=== PATIENT | male | born 1940 | race Caucasian/White ===

== ENCOUNTER → 2018-01-27 | Outpatient (REF) | payer MEDICARE, OTHER ==
[2018-01-27 15:31] LABS: ALBUMIN/GLOBULIN RATIO 1.21 (1.00-1.93); ALKALINE PHOSPHATASE 112 U/L (45-117); ALT/SGPT 24 U/L (12-78); ANION GAP 8 MEQ/L (8-16); AST/SGOT 17 U/L (7-37); BILIRUBIN,TOTAL 0.6 MG/DL (0.2-1.0); BLOOD UREA NITROGEN 11 MG/DL (7-18); CALCIUM LEVEL 9.4 MG/DL (8.8-10.2); CARBON DIOXIDE LEVEL 28 MEQ/L (21-32); CHLORIDE LEVEL 107 MEQ/L (98-107); CHOLESTEROL LEVEL 165 MG/DL (<200); CHOLESTEROL RISK RATIO 6.875 (<5); CREATININE FOR GFR 1.18 MG/DL (0.70-1.30); GLOMERULAR FILTRATION RATE > 60.0 (>42); GLUCOSE, FASTING 95 MG/DL (70-100); HDL CHOLESTEROL 24 MG/DL (>40); LDL CHOLESTEROL 81 MG/DL (<100); NON-HDL-C 141 MG/DL; POTASSIUM SERUM 4.2 MEQ/L (3.5-5.1); SODIUM LEVEL 143 MEQ/L (136-145); TOTAL PROTEIN 7.3 GM/DL (6.4-8.2); TRIGLYCERIDES LEVEL 301 MG/DL (<150)
[2018-01-27 15:36] LABS: TOTAL 25(OH) VITAMIN D 46.1 NG/ML (30.0-100.0)
== END ==
LOC: M SFHCPLAZ 09:39
DX: Z00.00 Encounter for general adult medical examination without abnormal findings (principal); E55.9 Vitamin D deficiency, unspecified; E78.5 Hyperlipidemia, unspecified; Z79.899 Other long term (current) drug therapy
CPT/HCPCS: 80053

== ENCOUNTER → 2018-06-13 | Outpatient (REF) | payer MEDICARE, OTHER ==
[~2018-06-13] MED LIST: /AUGM875TA; ACET65TA; ACTIVITY; ALTA10CA; COSOPT; FLAG500T; HYDR25TA6; LUMIGAN; METOPROLOL; PERC5TAB8; [UNRECOGNIZED DRUG - REMARK]
== END ==
LOC: M LABDRWAD 19:40
PROVIDERS: ATTEND Urology
DX: Z85.46 Personal history of malignant neoplasm of prostate (principal)

== ENCOUNTER → 2019-01-23 | Outpatient (REF) | payer MEDICARE, OTHER ==
[2019-01-23 13:45] LABS: ALBUMIN 3.9 GM/DL (3.2-5.2); ALT/SGPT 28 U/L (12-78); BILIRUBIN,TOTAL 0.6 MG/DL (0.2-1.0); BLOOD UREA NITROGEN 10 MG/DL (7-18); CALCIUM LEVEL 9.1 MG/DL (8.8-10.2); CARBON DIOXIDE LEVEL 27 MEQ/L (21-32); CHLORIDE LEVEL 106 MEQ/L (98-107); CHOLESTEROL LEVEL 161 MG/DL (<200); CREATININE FOR GFR 1.08 MG/DL (0.70-1.30); GLOMERULAR FILTRATION RATE > 60.0 (>42); GLUCOSE, FASTING 100 MG/DL (70-100); HDL CHOLESTEROL 28 MG/DL (>40); LDL CHOLESTEROL 86 MG/DL (<100); NON-HDL-C 133 MG/DL; POTASSIUM SERUM 3.8 MEQ/L (3.5-5.1); SODIUM LEVEL 139 MEQ/L (136-145); TOTAL PROTEIN 7.5 GM/DL (6.4-8.2); TRIGLYCERIDES LEVEL 236 MG/DL (<150)
[2019-01-23 13:47] LABS: TOTAL 25(OH) VITAMIN D 45.8 NG/ML (30.0-100.0)
== END ==
LOC: M SFHCPLAZ 11:18
PROVIDERS: ATTEND Nurse Practitioner Adult Health
DX: E78.5 Hyperlipidemia, unspecified (principal); E55.9 Vitamin D deficiency, unspecified
CPT/HCPCS: 36415; 80053; 80061; 82306; 90682; G0008

== ENCOUNTER 2020-10-02 22:06 | Observation (INO) | payer MEDICARE, OTHER ==
[~2020-10-02] VITALS: Ht 172.7 cm; Wt 78.3 kg
[2020-10-02 22:55] LABS: BASO # 0.1 10^3/uL (0.0-0.2); BASO % 1.1 % (0.0-1.0); EOS # 0.4 10^3/uL (0.0-0.5); EOS % 5.8 % (0.0-3.0); HEMATOCRIT 38.8 % (42.0-52.0); LYMPH # 1.8 10^3/uL (1.5-5.0); LYMPH % 25.6 % (24.0-44.0); MEAN CORPUSCULAR HGB CONC 33.5 g/dl (32.0-36.5); MEAN CORPUSCULAR VOLUME 86.4 fl (80.0-96.0); MONO # 0.8 10^3/uL (0.0-0.8); MONO % 11.2 % (2.0-8.0); NEUTROPHILS # 3.9 10^3/uL (1.5-8.5); NEUTROPHILS % 55.7 % (36.0-66.0); PLATELET COUNT, AUTOMATED 251 10^3/uL (150-450); RED BLOOD COUNT 4.49 10^6/uL (4.30-6.10)
[2020-10-02 23:28] LABS: OSMOLALITY SERUM 295 MOSM/KG (280-301)
[2020-10-02 23:35] LABS: ALBUMIN 3.8 GM/DL (3.2-5.2); ALT/SGPT 28 U/L (12-78); BILIRUBIN,DIRECT 0.1 MG/DL (0.0-0.2); BILIRUBIN,TOTAL 0.5 MG/DL (0.2-1.0); BLOOD UREA NITROGEN 13 MG/DL (7-18); CALCIUM LEVEL 9.2 MG/DL (8.8-10.2); CARBON DIOXIDE LEVEL 26 MEQ/L (21-32); CHLORIDE LEVEL 109 MEQ/L (98-107); CK-MB VALUE MASS 3.7 NG/ML (<3.6); CPK CREATINE PHOSPHOKINASE 200 U/L (39-308); CREATININE FOR GFR 1.15 MG/DL (0.70-1.30); ETHYL ALCOHOL (ETHANOL) < 0.003 % (0.000-0.010); GLOMERULAR FILTRATION RATE > 60.0 (>35); GLUCOSE, FASTING 93 MG/DL (70-100); MB/CK RELATIVE INDEX 1.85 (< OR =4); POTASSIUM SERUM 3.4 MEQ/L (3.5-5.1); SODIUM LEVEL 144 MEQ/L (136-145); TOTAL PROTEIN 7.6 GM/DL (6.4-8.2); TROPONIN I < 0.02 NG/ML (< 0.10)
--- NOTE | 2020-10-02 23:47 | REPVR ---
PROCEDURE INFORMATION: Exam: CT Head Without Contrast Exam date and time: 10/02/2020 10:54 PM Age: 80 years old Clinical indication: Altered mental status/memory loss; Confusion or disorientation TECHNIQUE: Imaging protocol: Computed tomography of the head without contrast. Radiation optimization: All CT scans at this facility use at least one of these dose optimization techniques: automated exposure control; mA and/or kV adjustment per patient size (includes targeted exams where dose is matched to clinical indication); or iterative reconstruction. COMPARISON: No relevant prior studies available. FINDINGS: Brain: There is mild cerebral volume loss. 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 No signs of a recent infarction or hemorrhage. No midline shift or mass effect. Cerebral ventricles: No ventriculomegaly. Paranasal sinuses: Visualized sinuses are clear. Mastoid air cells: Mastoid air cells are clear. Bones/joints: Unremarkable. No acute fracture. Soft tissues: Unremarkable. IMPRESSION: Mild cerebral volume loss and chronic white matter changes. No acute intracranial abnormality. Electronically signed by: Austyn Coker On 10/02/2020 23:46:50 PM
--- NOTE | 2020-10-03 00:16 | REPVR ---
PROCEDURE INFORMATION: Exam: XR Chest Exam date and time: 10/02/2020 11:55 PM Age: 80 years old Clinical indication: Other: Altered mental status TECHNIQUE: Imaging protocol: XR of the chest. Views: 1 view. COMPARISON: No relevant prior studies available. FINDINGS: Lungs: Clear. No consolidation. Pleural spaces: No pleural effusion. No pneumothorax. Heart/Mediastinum: Unremarkable. No cardiomegaly. Bones/joints: Unremarkable. IMPRESSION: No acute findings. Electronically signed by: Austyn Coker On 10/03/2020 00:15:37 AM
[2020-10-03 00:47] LABS: AMPHETAMINES LEVEL URINE NEGATIVE (NEGATIVE); BARBITURATES URINE NEGATIVE (NEGATIVE); BENZODIAZEPINES URINE NEGATIVE (NEGATIVE); CANNABINOIDS URINE NEGATIVE (NEGATIVE); COCAINE METABOLITE URINE NEGATIVE (NEGATIVE); METHADONE URINE NEGATIVE (NEGATIVE); OPIATES URINE NEGATIVE (NEGATIVE); PHENCYCLIDINE URINE NEGATIVE (NEGATIVE)
--- NOTE | 2020-10-03 03:28 | HPEPDOC ---
[facility] Medical History & Physical Date of Admission Oct 03, 2020 Date of Service: Oct 03, 2020 Attending Physician: BRENT GREGORIO MD MPH History and Physical CHIEF COMPLAINT: Confusion HISTORY OF PRESENT ILLNESS: Mr. Rivas was brought to the ED by EMS after he called his son this afternoon and was notably confused. Patient and son report that patient was napping in his recliner after lunch this morning and woke around 1730 and was disoriented. He thought it was morning again and so he ate breakfast and then went to call his son to ask when he was going to be picked up for a trip they had planned on taking (the next day). The son recognized the patient was confused and called EMS who brought the patient to the ED. Patient states he feels like his legs were a little shaky after getting up from his lounge chair but at this time he feels completely back to his baseline. Patient and son report that patient has not had any increased stressors recently, has not experienced any headaches, ab dominal discomfort, chest pains, fevers, chills, nausea, vomiting, stool changes, weight changes, or any other symptoms, about 7-10 days ago patient struck the top of his head on a cabinet door when standing up but did not lose consciousness or experience a lingering headache. 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 ROS: A 10 point ROS was obtained and was unremarkable except as noted above. PAST MEDICAL PROBLEMS: High blood pressure PAST SURGICAL HISTORY: Per chart review, multiple orthopedic surgeries MEDICATIONS: See record SOCIAL HISTORY: LIVES: At home, mostly alone, though does have children who visit and live nearby WORK: Retired TOBACCO: No recent ALCOHOL: Rare OTHER PERTINENT: Ambulates by self, drives occasionally locally PHYSICAL EXAMINATION: VITAL SIGNS: Reviewed, see below GENERAL: Well appearing, jovial older male, NAD HEENT: PERRLA, EOMI, dentition intact NECK: supple HEART: RRR no M/R/G, DPP 2+ bilaterally LUNGS: CTAB ABDOMEN: soft, non distended, non tender to palpation, active bowel sounds SKIN: No appreciable rashes or lesions MSK: no deformities, moving all limbs fully NEURO: Alert and oriented to person and place, requires additional prompting for name of hospital and city. Unable to recall year, believes it might be 20 something, cannot recall what month or what holiday is coming up and believes that it is spring. Can identify objects and is able to recall 2/3 objects imme diately, 3/3 with categories, and on delayed recall can remember 0/3 objects and 1/3 with categories. Extremity strength 5/5 throughout. Did not assess gait PSYCH: euthymic LABS: Reviewed RADIOLOGY: CXR: IMPRESSION: No acute findings. CT Head: IMPRESSION: Mild cerebral volume loss and chronic white matter changes. No acute intracranial abnormality. MICROBIOLOGY: BCx pending ASSESSMENT: Mr. Rivas is an 80 year old male brought in by EMS for several hours of new confusion without any specific focality but is now at his baseline per patient a nd family. He has been admitted for additional w/u after unremarkable labs and CT head in the ED. PLAN: # Confusion This is not a typical TIA or CVA presentation and while patient and son feel klaudia t it is resolved, patient still has some generalized memory impairment which may be of unclear duration. Imaging is not concerning for acute or recent bleed in light of history of head contusion a week ago however patient may be experiencing symptoms of a concussion. Differential also includes sundowning from a dementia process, decreased cerebral profusion, polypharmacy, and metabolic encephalopathy however laboratory studies are thus far normal. Patient cannot recall his medications at this time but does keep all the bottles in one area and will take medications from the bottles and does not use a pill container. Will continue w/u for TIA with MRI head and carotid duplex. Meds: Aspirin 81mg daily Atorvastatin 40mg QHS Consult pharmacy med historian for deep medication review Falls precautions MRI head Carotid duplex Neuro consult in the am Cholesterol study in the morning # Hypertension: Patient is mildly hypertensive on admission and may be on HCTZ. Unclear on if this is true as patient cannot recall medications and doses but will obtain records with medical records director. In general this could cause dehydration and electrolyte disturbances and further worsen any confusion and thus may consider changing medications in the morning. Meds: Await med review for home medications # Hypokalemia: Patient is likely on HCTZ and this could be causing his hypokalemia. Will replete and hold HCTZ pending med historian review and consider starting alternative BP medications. Meds: KCl 40MEQ Repeat labs in the morning DISPO: Med surg floor, obs DIET: heart healthy DVT PROPHY: lovenox DISCHARGE: <2 MN expected pending study results CONSULTS: PT, SW, possible Neuro in the AM Vital Signs Vital Signs Date Time Temp Pulse Resp B/P (MAP) Pulse Ox O2 Delivery O2 Flow Rate FiO2 10/03/20 02:03 79 20 99 Room Air 10/03/20 02:00 155/89 (111) 10/03/20 00:03 97.1 Laboratory Data Labs 24H Laboratory Tests 2 10/02/20 22:37: Immature Granulocyte % (Auto) 0.6, Neutrophils (%) (Auto) 55.7, Lymphocytes (%) (Auto) 25.6, Monocytes (%) (Auto) 11.2H, Eosinophils (%) (Auto) 5.8H, Basophils (%) (Auto) 1.1H, Neutrophils # (Auto) 3.9, Lymphocytes # (Auto) 1.8, Monocytes # (Auto) 0.8, Eosinophils # (Auto) 0.4, Basophils # (Auto) 0.1, Nucleated Red Blood Cells % (auto) 0.0, Anion Gap 9, Glomerular Filtration Rate > 60.0, Osmolality 295, Lactic Acid Level 1.3, Calcium Level 9.2, Total Bilirubin 0.5, Direct Bilirubin 0.1, Aspartate Amino Transf (AST/SGOT) 19, Alanine Aminotrans ferase (ALT/SGPT) 28, Alkaline Phosphatase 152H, Ammonia 19, Total Creatine Kinase 200, Creatine Kinase MB 3.7H, Creatine Kinase MB Relative Index 1.85, Troponin I < 0.02, Total Protein 7.6, Albumin 3.8, Albumin/Globulin Ratio 1.0, Thyroid Stimulating Hormone (TSH) 3.170, Ethyl Alcohol Level < 0.003 10/02/20 22:45: POC Glucose (Misc Panel) 100, POC Sodium (Misc Panel) 144, POC Potassium (Misc Panel) 3.1L, POC Chloride (Misc Panel) 104, POC Total CO2 (Misc Panel) 24.0, POC Blood Urea Nitrogen (Misc Panel 12, POC Ionized Calcium (Misc Panel) 4.7, POC Creatinine (Misc Panel) 1.1, POC Hematocrit (Misc Panel) 38.0 10/03/20 00:04: Urine Color STRAW, Urine Appearance CLEAR, Urine pH 6.0, Urine Specific [place] 1.006, Urine Protein NEGATIVE, Urine Glucose (UA) NEGATIVE, Urine Ketones NEGATIVE, Urine Blood NEGATIVE, Urine Nitrite NEGATIVE, Urine Bilirubin N EGATIVE, Urine Urobilinogen 0.2, Urine Leukocyte Esterase NEGATIVE, Urine WBC (Auto) 0, Urine RBC (Auto) 0, Urine Hyaline Casts (Auto) 0, Urine Bacteria (Auto) 1+H, Urine Squamous Epithelial Cells 0, Urine Sperm (Auto) , Urine Opiates Screen NEGATIVE, Urine Methadone Screen NEGATIVE, Urine Barbiturates Screen NEGATIVE, Urine Phencyclidine Screen NEGATIVE, Urine Amphetamines Screen NEGATIVE, Urine Benzodiazepines Screen NEGATIVE, Urine Cocaine Metabolite Screen NEGATIVE, Urine Cannabinoids Screen NEGATIVE CBC/BMP Laboratory Tests 10/02/20 22:37 Microbiology Microbiology 10/02/20 Blood Culture, Received Pending 10/02/20 Blood Culture, Received Pending Home Medications Miscellaneous Medications Acetaminophen (Tylenol) 650 Mg Tab Amoxicillin/Clavulanate Potas (Augmentin) 875 Mg Tab Hydrochlorothiazide (Hydrochlorothiazide) 25 Mg Tab Metronidazole (Flagyl) 500 Mg Tab Oxycodone/Acetaminophen (Percocet) 1 Tab Tab Oxycodone/Acetaminophen (Percocet) 1 Tab Tab Ramipril (Altace) 10 Mg Cap [Activity] [Cosopt] [Lumigan] [Metoprolol] [Maryuri Removal] Allergies Coded Allergies: No Known Allergies (Unverified , 10/03/20) A-FIB/CHADSVASC A-FIB History Current/History of A-Fib/PAF?: No Current PO Anticoag Therapy: No Age/Risk Factor Scoring CHADSVASC: CHADSVASC Response (Comments) Value Age Risk Factor Age >/= 75 years old 2 Gender Risk Factor Male 0 Hx of CHF No 0 Hx of HTN Yes 1 Hx of Stroke/TIA/or VTE No 0 Hx of Diabetes No 0 Hx of Vascular Disease No 0 Total 3 Treatment Treatment ordered: Other Other anticoagulant ordered: BRENT MCCONNELL MD MPH Oct 03, 2020 03:28
[2020-10-03 04:38] LABS: RSV AMPLIFICATION NEGATIVE (NEGATIVE)
[2020-10-03 04:56] LABS: C REACTIVE PROTEIN QUANTITATIV < 0.30 MG/DL (0.00-0.30); CHOLESTEROL LEVEL 157 MG/DL (<200); CHOLESTEROL RISK RATIO 5.814 (<5); HDL CHOLESTEROL 27 MG/DL (>40); LDL CHOLESTEROL 97 MG/DL (<100); NON-HDL-C 130 MG/DL; TRIGLYCERIDES LEVEL 163 MG/DL (<150)
[2020-10-03] MEDS: ATORVASTATIN 20 MG TAB PO SCH ×2 (05:00→20:32)
[2020-10-03] MEDS ORDERED: METO1TAB32 PO (05:02)
[2020-10-03] MEDS ORDERED: HYDR12CA PO (05:02)
[2020-10-03] MEDS ORDERED: COSO1SOL3 OU (05:02)
[2020-10-03] MEDS ORDERED: ASPI-161 PO (05:02)
[2020-10-03] MEDS ORDERED: RAMI1CAP26 PO (05:02)
[2020-10-03] MEDS ORDERED: AMLO2.5T3 PO (05:02)
[2020-10-03] MEDS ORDERED: BIMA01SOL OU (05:02)
[2020-10-03 05:15] VITALS: BP 150/80
--- NOTE | 2020-10-03 05:47 | ECGEPIP ---
[facility] - ED Test Date: 2020-10-02 Pat Name: KERRI CONNELL Department: Room: - Gender: Male Sort Line: GAVI : 1940 Requested By: ALLAN Redman Order Number: [id number] Reading MD: Juan Pop Measurements Intervals [place] Rate: 56 P: 49 NH: 154 QRS: 15 QRSD: 88 T: 11 QT: 426 QTc: 411 Interpretive Statements Sinus bradycardia NONSPECIFIC T WAVE ABNORMALITY(S) BASELINE ARTIFACT AFFECTS INTERPRETATION NO PRIORS FOR COMPARISON Electronically Signed on 10-03-2020 5:47:06 EDT by Juan Pop
[2020-10-03] MEDS ORDERED: LR 250 ML IV ONE (06:50)
--- NOTE | 2020-10-03 08:20 | REPVR ---
PROCEDURE INFORMATION: Exam: US Duplex Bilateral Extracranial Arteries Exam date and time: 10/03/2020 6:52 AM Age: 80 years old Clinical indication: Other: Confusion TECHNIQUE: Imaging protocol: Real-time Duplex ultrasound scan of the bilateral carotid and vertebral arteries combining vallecillo scale, color Doppler and spectral waveform analysis. Bilateral exam. COMPARISON: CT Head without contrast 10/02/2020 10:51 PM FINDINGS: Right common carotid artery: Unremarkable. No occlusion or stenosis. Waveforms are normal. Right internal carotid artery: Unremarkable. No occlusion or stenosis. Waveforms are normal. Right ICA/CCA ratio: Within normal limits. Right external carotid artery: No stenosis in the origin. Right vertebral artery: Antegrade flow in the right vertebral artery. Left common carotid artery: Unremarkable. No occlusion or stenosis. Waveforms are normal. Left internal carotid artery: Unremarkable. No occlusion or stenosis. Waveforms are normal. Left ICA/CCA ratio: Within normal limits. Left external carotid artery: No stenosis in the origin. Left vertebral artery: The left vertebral artery could not be identified. IMPRESSION: 1. No significant stenosis in the bilateral cervical carotid arteries. 2. Antegrade flow in the right vertebral artery. The left vertebral artery could not be identified. REFERENCES: SRU CRITERIA. The degree of internal carotid artery stenosis is based on criteria defined by the Society of Radiologists in Ultrasound (SRU). Normal is no stenosis. Mild is less than 50% stenosis. Moderate is 50-69% stenosis. Severe is greater than 69% stenosis to near occlusion. Near occlusion is a markedly narrowed lumen. Total occlusion is no detectable patent lumen. Electronically signed by: Breana Sepulveda On 10/03/2020 08:20:12 AM
[2020-10-03] MEDS: ENOXAPARIN 40MG/0.4ML SYRINGE (J1650 PER 10MG) SC SCH (08:33)
[2020-10-03] MEDS: ASPIRIN 81MG ENTERIC TABLET PO SCH (08:33)
[2020-10-03] MEDS ORDERED: POTASSIUM CHL PWD 20 MEQ PACKET PO ONE (09:00)
[2020-10-03 14:00] VITALS: BP 119/72
--- NOTE | 2020-10-03 16:57 | REPVR ---
PROCEDURE INFORMATION: Exam: MR Head Without Contrast Exam date and time: 10/03/2020 2:47 AM Age: 80 years old Clinical indication: Altered mental status/memory loss; Confusion or disorientation TECHNIQUE: Imaging protocol: MR of the head without contrast. COMPARISON: CT Head without contrast 10/02/2020 10:51 PM FINDINGS: Brain: No acute infarct identified on the diffusion-weighted imaging. No parenchymal hemorrhage. The brain demonstrates generalized volume loss. Moderate patchy increased signal intensity in the deep white matter on the T2 weighted imaging most likely represents chronic small vessel ischemic change. Cerebral ventricles: The ventricles are enlarged in keeping with volume loss. Bones/joints: Unremarkable. Paranasal sinuses: Trace ethmoid mucosal thickening. Mastoid air cells: Normal as visualized. No mastoid effusion. Orbital cavity: Unremarkable. Soft tissues: Unremarkable. IMPRESSION: No acute intracranial abnormality. Electronically signed by: Shilpa Zuniga On 10/03/2020 16:56:39 PM
[2020-10-03 22:00] VITALS: BP 150/78
[2020-10-04 06:00] VITALS: BP 103/57
[2020-10-04 06:17] LABS: HEMATOCRIT 39.7 % (42.0-52.0); HEMOGLOBIN 13.4 g/dl (13.5-17.5); MEAN CORPUSCULAR HGB CONC 33.8 g/dl (32.0-36.5); MEAN CORPUSCULAR VOLUME 85.9 fl (80.0-96.0); PLATELET COUNT, AUTOMATED 251 10^3/uL (150-450); RED BLOOD COUNT 4.62 10^6/uL (4.30-6.10); WHITE BLOOD COUNT 7.6 10^3/uL (4.0-10.0)
[2020-10-04 06:39] LABS: BLOOD UREA NITROGEN 13 MG/DL (7-18); CARBON DIOXIDE LEVEL 25 MEQ/L (21-32); CHLORIDE LEVEL 109 MEQ/L (98-107); CREATININE FOR GFR 0.92 MG/DL (0.70-1.30); GLOMERULAR FILTRATION RATE > 60.0 (>35); GLUCOSE, FASTING 99 MG/DL (70-100); POTASSIUM SERUM 3.7 MEQ/L (3.5-5.1); SODIUM LEVEL 140 MEQ/L (136-145)
[2020-10-04] MEDS: ASPIRIN 81MG ENTERIC TABLET PO SCH (08:11)
[2020-10-04] MEDS: ENOXAPARIN 40MG/0.4ML SYRINGE (J1650 PER 10MG) SC SCH (08:11)
--- NOTE | 2020-10-04 11:08 | DSES ---
DISCHARGE SUMMARY DATE OF ADMISSION: 10/02/2020 DATE OF DISCHARGE: 10/04/2020 PRINCIPAL DIAGNOSIS: Altered mental status probably related to minor head trauma earlier in the week with underlying dementia. HISTORY: The patient was admitted with disorientation. For details, see history and physical from admission. HOSPITAL COURSE: He quickly returned to his baseline mental status after admission. His vital signs were stable while he was here. MRI of the brain showed age-related atrophy. Carotid ultrasound was unremarkable. Lab work was unremarkable. DISCHARGE PHYSICAL EXAMINATION: GENERAL APPEARANCE: On the day of discharge, he is dressed and ready to go home. He is able to converse. He tells me the name of his son, who he had asked me to call and gave me his address. I did not see any particular deficits beyond what would be expected for age. NEUROLOGIC: Nonfocal. LUNGS: Clear. HEART: Regular rate and rhythm. ABDOMEN: Soft and nontender. SIGNIFICANT LABORATORY DATA: Electrolytes unremarkable today. Potassium 3.7, creatinine 0.9, white count 7.6, hemoglobin 13, platelets 251,000. Tox screen was negative. Urinalysis was negative. SARS screen was negative. IMAGING DATA: Studies as above. DISCHARGE DISPOSITION: He is discharged home in improved and stable condition. He will follow-up with his primary care provider, La Nena Floyd, in a week. DISCHARGE ACTIVITY: As tolerated. DISCHARGE DIET: Continue a no added salt diet. DISCHARGE MEDICATIONS: Unchanged. 1. Amlodipine 2.5 mg daily. 2. Aspirin 81 mg daily. 3. Hydrochlorothiazide 12.5 daily. 4. Metoprolol succinate 25 mg daily. 5. Ramipril 10 mg. 6. Eye drops. The case was discussed with the son who agrees with discharge. Currently no pending labs.
== END 2020-10-04 11:52 | disposition home or self-care (01) ==
LOC: M ED 22:06 → M ED INP 22:07 → ENRESERV 10-03 03:29 → M MSPAV 10-03 05:08
PROVIDERS: ADMIT General Practice; ATTEND Family Medicine
DX: R41.82 Altered mental status, unspecified (principal); F03.90 Unspecified dementia, unspecified severity, without behavioral disturbance, psychotic disturbance, mood disturbance, and anxiety; I10 Essential (primary) hypertension; E87.6 Hypokalemia; Z79.82 Long term (current) use of aspirin; Z79.899 Other long term (current) drug therapy; R09.89 Other specified symptoms and signs involving the circulatory and respiratory systems
CPT/HCPCS: 36415; 70450; 70551; 71045; 80047; 80048; 80061; 80076; 80307; 81001; 82077; 82140; 82550; 82553; 83605; 83930; 84443; 84484; 85025; 85027; 86140; 87040; 87631; 93005; 93041; 93880; 94760; 96372; 97110; 97161; 99285; G0378; J1650

== ENCOUNTER → 2021-01-05 | Outpatient (CLI) | payer MEDICARE, OTHER ==
[~2021-01-05] MED LIST changes: +AMLO2.5T3 PO; +ASPI-161 PO; +BIMA01SOL OU; +COSO1SOL3 OU; +E-Z-GAS II EFFERVESCENT PACKET (SODIUM BICARB./CITRIC ACID/SIMETHICONE) As Ordered ONE; +E-Z-HD 98% w/w 340GM SUSP BTL As Ordered ONE; +E-Z-PAQUE 96% w/w SUSP 176GM BTL As Ordered ONE; +HYDR12CA PO; +METO1TAB32 PO; +RAMI1CAP26 PO
--- NOTE | 2021-01-05 16:05 | REP ---
INDICATION: R13.10 DYSPHAGIA. COMPARISON: None. TECHNIQUE: This procedure was performed under the direct supervision of Dr. Rodriguez. Images were reviewed with Dr. Rodriguez. Liquid barium and gas producing granules were given in the erect position as well as liquid barium in the prone oblique positions in order to perform a double contrast esophagram examination. A combination of fluoroscopy, spot films and last image hold technology was utilized. 1.1 minutes of fluoro time was utilized for this procedure. FINDINGS: A single view PA chest x-ray is submitted as a [employer] commerce consultant film. The superior mediastinal structures are midline. The heart size is within normal limits. The lungs are clear. During the oral and pharyngeal stages of deglutition there is laryngeal penetration. There is eccentric indentation on the lateral cervical esophagus on the right. This may be due to an internal lesion or external compression. Throughout the esophagus there is diffuse mucosal irregularity with slight narrowing consistent with esophagitis. At the GE junction there is eccentric mass effect which may represent neoplasm. Recommend endoscopy for further evaluation. There is a sliding-type hiatal hernia. There is gastroesophageal reflux demonstrated to the level of the thoracic inlet. IMPRESSION: 1. Laryngeal penetration. 2. There is eccentric indentation on the lateral esophagus on the right. This may be due to an internal lesion or external compression. 3. Throughout the esophagus there is diffuse mucosal irregularity with slight narrowing consistent with esophagitis. 4. At the GE junction there is eccentric mass effect which may represent neoplasm. Recommend endoscopy for further evaluation. 5. There is a sliding-type hiatal hernia. There is gastroesophageal reflux demonstrated to the level of the thoracic inlet. <Electronically signed by Emeka Plata > 01/05/21 1557 <Electronically signed by Kirk Rodriguez > 01/05/21 1601
== END ==
LOC: M RAD 09:04
PROVIDERS: ATTEND Physician Assistant Medical
DX: K22.9 Disease of esophagus, unspecified (principal)

== ENCOUNTER → 2021-01-07 | Outpatient (CLI) | payer MEDICARE, OTHER ==
[~2021-01-07] MED LIST changes: -E-Z-GAS II EFFERVESCENT PACKET (SODIUM BICARB./CITRIC ACID/SIMETHICONE) As Ordered ONE; -E-Z-HD 98% w/w 340GM SUSP BTL As Ordered ONE; -E-Z-PAQUE 96% w/w SUSP 176GM BTL As Ordered ONE
== END ==
LOC: M LABSMTC 09:20
PROVIDERS: ATTEND Anesthesiology
DX: Z01.818 Encounter for other preprocedural examination (principal); Z11.52 Encounter for screening for COVID-19

== ENCOUNTER 2021-01-09 11:06 | Day surgery (SDC) | payer MEDICARE, OTHER ==
[~2021-01-09] VITALS: Ht 172.7 cm; Wt 76.2 kg
[~2021-01-09 11:06] MED LIST changes: +LIDOCAINE 2% 100MG/5ML SDV (FOR ANES.) As Ordered ONE; +NS 1,000 ML IV ONE; +fentaNYL 100 MCG/2 ML INJECTION (J3010) As Ordered ONE; +propofoL 200 MG/20 ML VIAL As Ordered ONE
[2021-01-09] MEDS ORDERED: propofoL 200 MG/20 ML VIAL As Ordered ONE (13:12)
--- NOTE | 2021-01-09 14:01 | ROOR ---
Patient Name: Jung Rivas Procedure Date: 01/09/2021 12:49 PM Date of : 1940 Age: 80 Room: [facility] Gender: Male Note Status: Finalized Procedure: Upper GI endoscopy Indications: Dysphagia Providers: Kermit Johnson MD Referring MD: La Nena Floyd NP Requesting Provider: Medicines: Monitored Anesthesia Care Complications: No immediate complications. Procedure: Pre-Anesthesia Assessment: - Prior to the procedure, a History and Physical was performed, and patient medications and allergies were reviewed. The patient is competent. The risks and benefits of the procedure and the sedation options and risks were discussed with the patient. All questions were answered and informed consent was obtained. Patient identification and proposed procedure were verified by the physician, the nurse and the anesthesiologist in the procedure room. Mental Status Examination: alert and oriented. Airway Examination: normal oropharyngeal airway and neck mobility. Respiratory Examination: clear to auscultation. CV Examination: normal. Prophylactic Antibiotics: The patient does not require prophylactic antibiotics. Prior Anticoagulants: The patient has taken no previous anticoagulant or antiplatelet agents. ASA Grade Assessment: II - A patient with mild systemic disease. After reviewing the risks and benefits, the patient was deemed in satisfactory condition to undergo the procedure. The anesthesia plan was to use monitored anesthesia care (MAC). Immediately prior to administration of medications, the patient was re-assessed for adequacy to receive sedatives. The heart rate, respiratory rate, oxygen saturations, blood pressure, adequacy of pulmonary ventilation, and response to care were monitored throughout the procedure. The physical status of the patient was re-assessed after the procedure. The Endoscope was introduced through the mouth, and advanced to the second part of duodenum. The Colonoscope was introduced through the and advanced to the. The upper GI endoscopy was accomplished without difficulty. The patient tolerated the procedure well. Findings: A 50 mm scar was found in the upper third of the esophagus and in the middle third of the esophagus, 20 cm from the incisors. The scar tissue was healthy in appearance. Adjacent mucosal findings include nodularity. Biopsies were taken with a cold forceps for histology. Verification of patient identification for the specimen was done by the physician and nurse using the patient's name, date and medical record number. Estimated blood loss was minimal. Multiple benign-appearing, intrinsic severe (stenosis; an endoscope cannot pass) stenoses were found 20 to 25 cm from the incisors. The narrowest stenosis measured 8 mm (inner diameter) x 5 cm (in length). The stenoses were traversed after downsizing scope. A TTS dilator was passed through the scope. Dilation with a 10-11-12 mm balloon dilator was performed to 11 mm. The dilation site was examined following endoscope reinsertion and showed moderate improvement in luminal narrowing and no perforation. One 20 mm mucosal papule (nodule) with no bleeding and no stigmata of recent bleeding was found in the gastric fundus. Biopsies were taken with a cold forceps for histology. Verification of patient identification for the specimen was done by the physician and nurse using the patient's name, date and medical record number. Scattered mild inflammation characterized by erythema and granularity was found in the gastric antrum. Biopsies were taken with a cold forceps for Helicobacter pylori testing. The duodenal bulb, second portion of the duodenum and third portion of the duodenum were normal. Impression: - Scar in the upper third of the esophagus and in the middle third of the esophagus. Biopsied. - Benign-appearing esophageal stenoses. Dilated. - One mucosal papule (nodule) found in the stomach. Biopsied. - Gastritis. Biopsied. - Normal duodenal bulb, second portion of the duodenum and third portion of the duodenum. Recommendation: - Patient has a contact number available for emergencies. The signs and symptoms of potential delayed complications were discussed with the patient. Return to normal activities tomorrow. Written discharge instructions were provided to the patient. - Clear liquid diet today, then advance as tolerated to mechanical soft diet, soft diet and high fiber diet. - Continue present medications. - Use Protonix (pantoprazole) 40 mg PO twice daily - to be taken in morning (1/2 hour before breakfast) and at bedtime ( atleast 3 hours after last meal) for 3 months. - Use sucralfate suspension 1 gram PO QID for 4 weeks. - Repeat upper endoscopy in 2 months to evaluate the response to therapy and for retreatment. - Telephone GI clinic for pathology results in 2 weeks. - Return to GI clinic in [facility] (address: [address] [place] [address], [address] [place] [address], [place], [place],[facility]) in 4 -- 6 weeks. Please call GI clinic @ [phone] for apppointment date and time. - Return to primary care physician. Procedure Code(s): --- Professional --- 75219, Esophagogastroduodenoscopy, flexible, transoral; with transendoscopic balloon dilation of esophagus (less than 30 mm diameter) 78841, 59, Esophagogastroduodenoscopy, flexible, transoral; with biopsy, single or multiple Diagnosis Code(s): --- Professional --- K22.8, Other specified diseases of esophagus K22.2, Esophageal obstruction K31.89, Other diseases of stomach and duodenum K29.70, Gastritis, unspecified, without bleeding R13.10, Dysphagia, unspecified CPT copyright 2019 [employer]. All rights reserved. The codes documented in this report are preliminary and upon business relationship manager review may be revised to meet current compliance requirements. Kermit Jonhson MD Kermit Johnson MD 01/09/2021 2:01:12 PM Electronically signed by Kermit Johnson MD Number of Addenda: 0 Note Initiated On: 01/09/2021 12:49 PM Estimated Blood Loss: Estimated blood loss was minimal.
[2021-01-09 14:15] VITALS: BP 114/63
== END 2021-01-09 14:16 | disposition home or self-care (01) ==
LOC: M OPP 11:06
PROVIDERS: ATTEND Internal Medicine Gastroenterology
DX: K22.89 Other specified disease of esophagus (principal); K22.2 Esophageal obstruction; K31.89 Other diseases of stomach and duodenum; K29.70 Gastritis, unspecified, without bleeding; R13.10 Dysphagia, unspecified; Z79.82 Long term (current) use of aspirin; Z79.899 Other long term (current) drug therapy; Z90.79 Acquired absence of other genital organ(s)
CPT/HCPCS: 43239; 43249; 88305; J3010

== ENCOUNTER → 2021-02-06 | Outpatient (REF) | payer MEDICARE, OTHER ==
[~2021-02-06] MED LIST changes: -LIDOCAINE 2% 100MG/5ML SDV (FOR ANES.) As Ordered ONE; -NS 1,000 ML IV ONE; -fentaNYL 100 MCG/2 ML INJECTION (J3010) As Ordered ONE; -propofoL 200 MG/20 ML VIAL As Ordered ONE
[2021-02-06 13:08] LABS: ALBUMIN 3.6 GM/DL (3.2-5.2); ALT/SGPT 18 U/L (12-78); BILIRUBIN,TOTAL 0.8 MG/DL (0.2-1.0); BLOOD UREA NITROGEN 12 MG/DL (7-18); CALCIUM LEVEL 9.3 MG/DL (8.8-10.2); CARBON DIOXIDE LEVEL 29 MEQ/L (21-32); CHLORIDE LEVEL 107 MEQ/L (98-107); CHOLESTEROL LEVEL 177 MG/DL (<200); CHOLESTEROL RISK RATIO 6.103 (<5); CREATININE FOR GFR 1.18 MG/DL (0.70-1.30); GLOMERULAR FILTRATION RATE > 60.0 (>35); GLUCOSE, FASTING 103 MG/DL (70-100); HDL CHOLESTEROL 29 MG/DL (>40); LDL CHOLESTEROL 127 MG/DL (<100); NON-HDL-C 148 MG/DL; POTASSIUM SERUM 3.6 MEQ/L (3.5-5.1); SODIUM LEVEL 144 MEQ/L (136-145); TOTAL 25(OH) VITAMIN D 30.3 NG/ML (30.0-100.0); TOTAL PROTEIN 7.1 GM/DL (6.4-8.2); TRIGLYCERIDES LEVEL 107 MG/DL (<150)
== END ==
LOC: M SFHCPLAZ 09:14 → M SFHCADAM 09:21
PROVIDERS: ATTEND Nurse Practitioner Adult Health
DX: E55.9 Vitamin D deficiency, unspecified (principal); E78.5 Hyperlipidemia, unspecified; I10 Essential (primary) hypertension

== ENCOUNTER → 2021-04-08 | Outpatient (CLI) | payer MEDICARE, OTHER | LOC: M LABSMTC 11:39 | PROVIDERS: ATTEND Anesthesiology | DX: Z20.822 Contact with and (suspected) exposure to COVID-19 (principal) ==

== ENCOUNTER → 2021-06-10 | Outpatient (CLI) | payer MEDICARE, OTHER ==
[~2021-06-10] MED LIST changes: +PANT40TA29 PO; +SUCR1ORA2 PO
== END ==
LOC: M LABSMTC 09:50
PROVIDERS: ATTEND Anesthesiology
DX: Z01.818 Encounter for other preprocedural examination (principal); Z11.52 Encounter for screening for COVID-19

== ENCOUNTER 2021-06-15 08:32 | Day surgery (SDC) | payer MEDICARE, OTHER ==
[~2021-06-15] VITALS: Ht 172.7 cm; Wt 75.7 kg
[~2021-06-15 08:32] MED LIST changes: +LIDOCAINE 2% 100MG/5ML SDV (FOR ANES.) As Ordered ONE; +NS 1,000 ML IV ONE; +fentaNYL 100 MCG/2 ML INJECTION As Ordered ONE; +propofoL 200 MG/20 ML VIAL As Ordered ONE
[2021-06-15] MEDS ORDERED: propofoL 200 MG/20 ML VIAL As Ordered ONE (10:20)
[2021-06-15 10:58] VITALS: BP 113/73
== END 2021-06-15 11:00 | disposition home or self-care (01) ==
LOC: M OPP 08:32
PROVIDERS: ATTEND Internal Medicine Gastroenterology
DX: K22.89 Other specified disease of esophagus (principal); K44.9 Diaphragmatic hernia without obstruction or gangrene; K22.2 Esophageal obstruction; Z79.82 Long term (current) use of aspirin; Z79.899 Other long term (current) drug therapy; Z85.46 Personal history of malignant neoplasm of prostate
CPT/HCPCS: 43239; 43249; 88305; 88312; J3010

== ENCOUNTER 2021-07-17 09:50 | Emergency (ER) | payer MEDICARE, OTHER ==
[~2021-07-17] VITALS: Ht 172.7 cm; Wt 75.0 kg
[~2021-07-17 09:50] MED LIST changes: -LIDOCAINE 2% 100MG/5ML SDV (FOR ANES.) As Ordered ONE; -NS 1,000 ML IV ONE; -fentaNYL 100 MCG/2 ML INJECTION As Ordered ONE; -propofoL 200 MG/20 ML VIAL As Ordered ONE
[2021-07-17] MEDS ORDERED: NS 500 ML IV ONE (10:00)
[2021-07-17 10:26] LABS: BASO % 0.4 % (0.0-1.0); EOS % 0.2 % (0.0-3.0); HEMATOCRIT 39.2 % (42.0-52.0); HEMOGLOBIN 13.3 g/dl (13.5-17.5); LYMPH # 0.8 10^3/uL (1.5-5.0); LYMPH % 8.4 % (24.0-44.0); MEAN CORPUSCULAR HEMOGLOBIN 29.3 pg (27.0-33.0); MEAN CORPUSCULAR HGB CONC 33.9 g/dl (32.0-36.5); MEAN CORPUSCULAR VOLUME 86.3 fl (80.0-96.0); MONO # 0.9 10^3/uL (0.0-0.8); MONO % 9.9 % (2.0-8.0); NEUTROPHILS # 7.7 10^3/uL (1.5-8.5); NEUTROPHILS % 80.6 % (36.0-66.0); PLATELET COUNT, AUTOMATED 200 10^3/uL (150-450); RED BLOOD COUNT 4.54 10^6/uL (4.30-6.10); WHITE BLOOD COUNT 9.5 10^3/uL (4.0-10.0)
[2021-07-17 11:06] LABS: RSV AMPLIFICATION NEGATIVE (NEGATIVE)
[2021-07-17 11:15] LABS: ALBUMIN 3.6 GM/DL (3.2-5.2); BILIRUBIN,DIRECT 0.3 MG/DL (0.0-0.2); BILIRUBIN,TOTAL 1.1 MG/DL (0.2-1.0); CALCIUM LEVEL 8.7 MG/DL (8.8-10.2); CREATININE FOR GFR 1.34 MG/DL (0.70-1.30); GLOMERULAR FILTRATION RATE 54.5 (>35); POTASSIUM SERUM 2.9 MEQ/L (3.5-5.1); TOTAL PROTEIN 7.5 GM/DL (6.4-8.2)
[2021-07-17] MEDS ORDERED: POTASSIUM CHLORIDE 10MEQ SR TABLET PO ONE (11:25)
[2021-07-17] MEDS ORDERED: KCL 10MEQ/100ML SWI (KRUN) 10 MEQ in IV 1 EA IV ONE (12:00)
[2021-07-17] MEDS ORDERED: K-TA10TA2 PO (13:15)
[2021-07-17 13:29] VITALS: BP 148/93
== END 2021-07-17 13:45 | disposition home or self-care (01) ==
LOC: EDBD 09:50 → M ED 09:50
DX: R11.2 Nausea with vomiting, unspecified (principal); R19.7 Diarrhea, unspecified; E87.6 Hypokalemia; I10 Essential (primary) hypertension; E78.5 Hyperlipidemia, unspecified; F17.200 Nicotine dependence, unspecified, uncomplicated; Z79.82 Long term (current) use of aspirin; Z79.899 Other long term (current) drug therapy

== ENCOUNTER → 2021-07-24 | Outpatient (CLI) | payer MEDICARE, OTHER ==
[~2021-07-24] MED LIST changes: +K-TA10TA2 PO
[2021-07-24 12:25] LABS: BLOOD UREA NITROGEN 10 MG/DL (7-18); CALCIUM LEVEL 8.9 MG/DL (8.8-10.2); CARBON DIOXIDE LEVEL 29 MEQ/L (21-32); CHLORIDE LEVEL 109 MEQ/L (98-107); CREATININE FOR GFR 1.08 MG/DL (0.70-1.30); GLOMERULAR FILTRATION RATE > 60.0 (>35); GLUCOSE, FASTING 90 MG/DL (70-100); POTASSIUM SERUM 3.6 MEQ/L (3.5-5.1); SODIUM LEVEL 143 MEQ/L (136-145)
== END ==
LOC: M ADAMS 08:37
PROVIDERS: ATTEND Nurse Practitioner Adult Health
DX: E87.6 Hypokalemia (principal)

== ENCOUNTER 2021-09-17 22:20 | Emergency (ER) | payer MEDICARE, OTHER ==
[~2021-09-17] VITALS: Ht 172.7 cm; Wt 73.6 kg
[2021-09-17 23:21] LABS: BASO # 0.1 10^3/uL (0.0-0.2); BASO % 0.8 % (0.0-1.0); EOS # 0.3 10^3/uL (0.0-0.5); EOS % 3.7 % (0.0-3.0); HEMATOCRIT 36.3 % (42.0-52.0); HEMOGLOBIN 12.1 g/dl (13.5-17.5); LYMPH # 1.6 10^3/uL (1.5-5.0); LYMPH % 17.5 % (24.0-44.0); MEAN CORPUSCULAR HEMOGLOBIN 28.7 pg (27.0-33.0); MEAN CORPUSCULAR HGB CONC 33.3 g/dl (32.0-36.5); MONO # 0.9 10^3/uL (0.0-0.8); MONO % 9.9 % (2.0-8.0); NEUTROPHILS # 6.2 10^3/uL (1.5-8.5); NEUTROPHILS % 67.7 % (36.0-66.0); PLATELET COUNT, AUTOMATED 210 10^3/uL (150-450); RED BLOOD COUNT 4.22 10^6/uL (4.30-6.10); WHITE BLOOD COUNT 9.1 10^3/uL (4.0-10.0)
[2021-09-18] LABS: ALBUMIN 3.2 GM/DL (3.2-5.2); ALT/SGPT 22 U/L (12-78); BILIRUBIN,TOTAL 0.4 MG/DL (0.2-1.0); BLOOD UREA NITROGEN 14 MG/DL (7-18); CALCIUM LEVEL 8.5 MG/DL (8.8-10.2); CARBON DIOXIDE LEVEL 25 MEQ/L (21-32); CHLORIDE LEVEL 112 MEQ/L (98-107); CREATININE FOR GFR 1.19 MG/DL (0.70-1.30); GLOMERULAR FILTRATION RATE > 60.0 (>35); GLUCOSE, FASTING 110 MG/DL (70-100); SODIUM LEVEL 144 MEQ/L (136-145); TOTAL PROTEIN 6.8 GM/DL (6.4-8.2)
[2021-09-18 01:00] VITALS: BP 117/70
== END 2021-09-18 01:15 | disposition home or self-care (01) ==
LOC: M ED 22:20
DX: R53.1 Weakness (principal); R53.83 Other fatigue; R41.82 Altered mental status, unspecified; I10 Essential (primary) hypertension; H40.9 Unspecified glaucoma; Z79.899 Other long term (current) drug therapy

== ENCOUNTER → 2022-02-03 | Outpatient (CLI) | payer MEDICARE, OTHER ==
[2022-02-03 15:10] LABS: ALBUMIN 3.8 GM/DL (3.2-5.2); BILIRUBIN,TOTAL 0.6 MG/DL (0.2-1.0); CALCIUM LEVEL 9.6 MG/DL (8.8-10.2); CHOLESTEROL RISK RATIO 5.272 (<5); CREATININE FOR GFR 1.24 MG/DL (0.70-1.30); GLOMERULAR FILTRATION RATE 59.6 (>35); TOTAL PROTEIN 7.7 GM/DL (6.4-8.2)
[2022-02-03 16:21] LABS: TOTAL 25(OH) VITAMIN D 20.5 NG/ML (30.0-100.0)
== END ==
LOC: M PLALAB 11:21
PROVIDERS: ATTEND Nurse Practitioner Adult Health
DX: E55.9 Vitamin D deficiency, unspecified (principal); E78.00 Pure hypercholesterolemia, unspecified

== ENCOUNTER → 2023-04-15 | Outpatient (CLI) | payer MEDICARE, OTHER ==
[~2023-04-15] MED LIST changes: -COSO1SOL3 OU; +DORZ10DR10 OU; -K-TA10TA2 PO; +POTA-165 PO
== END ==
LOC: M PLALAB 11:37
PROVIDERS: ATTEND Urology
DX: Z85.46 Personal history of malignant neoplasm of prostate (principal)

== ENCOUNTER 2023-07-13 20:22 | Emergency (ER) | payer MEDICARE, OTHER ==
[~2023-07-13] VITALS: Ht 175.3 cm; Wt 90.9 kg
[~2023-07-13 20:22] MED LIST changes: -ASPI-161 PO; +ASPI-615 PO
[2023-07-13 21:48] LABS: BASO # 0.1 10^3/uL (0.0-0.2); EOS # 0.3 10^3/uL (0.0-0.5); EOS % 3.5 % (0.0-3.0); HEMATOCRIT 34.5 % (42.0-52.0); HEMOGLOBIN 11.8 g/dl (13.5-17.5); LYMPH # 1.5 10^3/uL (1.5-5.0); LYMPH % 18.4 % (24.0-44.0); MEAN CORPUSCULAR HEMOGLOBIN 29.4 pg (27.0-33.0); MEAN CORPUSCULAR HGB CONC 34.2 g/dl (32.0-36.5); MONO # 0.8 10^3/uL (0.0-0.8); MONO % 9.6 % (2.0-8.0); NEUTROPHILS # 5.5 10^3/uL (1.5-8.5); NEUTROPHILS % 66.9 % (36.0-66.0); PLATELET COUNT, AUTOMATED 195 10^3/uL (150-450); RED BLOOD COUNT 4.01 10^6/uL (4.30-6.10); WHITE BLOOD COUNT 8.3 10^3/uL (4.0-10.0)
[2023-07-13 22:00] LABS: INR 1.01
[2023-07-13 22:15] LABS: ALBUMIN 3.3 G/DL (3.2-5.2); ALKALINE PHOSPHATASE 114 U/L (46-116); ALT/SGPT 11 U/L (7.0-40); AST/SGOT 13 U/L (<34); BILIRUBIN,TOTAL 0.4 MG/DL (0.3-1.2); BLOOD UREA NITROGEN 17 MG/DL (9-23); CALCIUM LEVEL 8.7 MG/DL (8.3-10.6); CARBON DIOXIDE LEVEL 28 MMOL/L (20-31); CHLORIDE LEVEL 111 MMOL/L (98-107); CREATININE FOR GFR 1.13 MG/DL (0.70-1.30); GLOMERULAR FILTRATION RATE > 60.0 (>35); GLUCOSE, FASTING 100 MG/DL (74-106); MAGNESIUM LEVEL 1.8 MG/DL (1.8-2.4); POTASSIUM SERUM 3.7 MMOL/L (3.5-5.1); SODIUM LEVEL 145 MMOL/L (136-145); TOTAL PROTEIN 6.4 G/DL (5.7-8.2)
[2023-07-13 22:48] VITALS: BP 132/83; TEMP 97.8; O2SAT 98
== END 2023-07-13 23:03 | disposition home or self-care (01) ==
LOC: M ED 20:22
DX: S09.90XA Unspecified injury of head, initial encounter (principal); Y92.019 Unspecified place in single-family (private) house as the place of occurrence of the external cause; Y93.9 Activity, unspecified; Y99.9 Unspecified external cause status; W18.2XXA Fall in (into) shower or empty bathtub, initial encounter; Z79.899 Other long term (current) drug therapy

== ENCOUNTER → 2023-07-19 | Outpatient (CLI) | payer MEDICARE, OTHER | LOC: M PLAIMG 15:26 | PROVIDERS: ATTEND Physician Assistant Medical | DX: M51.34 Other intervertebral disc degeneration, thoracic region (principal); M47.816 Spondylosis without myelopathy or radiculopathy, lumbar region ==

== ENCOUNTER → 2024-02-09 | Outpatient (CLI) | payer MEDICARE, OTHER ==
[~2024-02-09] MED LIST changes: +RAMI10CA64 PO; -RAMI1CAP26 PO
[2024-02-09 13:00] LABS: HEMATOCRIT 40.7 % (42.0-52.0); HEMOGLOBIN 13.3 g/dl (13.5-17.5); MEAN CORPUSCULAR HEMOGLOBIN 28.5 pg (27.0-33.0); MEAN CORPUSCULAR HGB CONC 32.7 g/dl (32.0-36.5); MEAN CORPUSCULAR VOLUME 87.3 fl (80.0-96.0); PLATELET COUNT, AUTOMATED 236 10^3/uL (150-450); RED BLOOD COUNT 4.66 10^6/uL (4.30-6.10); WHITE BLOOD COUNT 8.5 10^3/uL (4.0-10.0)
[2024-02-09 13:03] LABS: ALBUMIN 3.6 G/DL (3.2-5.2); BILIRUBIN,TOTAL 0.7 MG/DL (0.3-1.2); CALCIUM LEVEL 9.5 MG/DL (8.3-10.6); CHOLESTEROL RISK RATIO 5.72 (<5); CREATININE FOR GFR 1.26 MG/DL (0.70-1.30); GLOMERULAR FILTRATION RATE 58.2 (>35); HDL CHOLESTEROL 33.2 MG/DL (>40); LDL CHOLESTEROL 128.2 MG/DL (<100); NON-HDL-C 156.8 MG/DL; TOTAL PROTEIN 7.4 G/DL (5.7-8.2)
[2024-02-09 13:05] LABS: FERRITIN 78.9 NG/ML (10.5-307.3)
== END ==
LOC: M PLAIMG 09:31
PROVIDERS: ATTEND Nurse Practitioner Adult Health
DX: M25.561 Pain in right knee (principal); I10 Essential (primary) hypertension; E78.5 Hyperlipidemia, unspecified; E55.9 Vitamin D deficiency, unspecified

== ENCOUNTER 2024-10-25 22:54 | Inpatient (IN) | payer MEDICARE, OTHER ==
[~2024-10-25] VITALS: Ht 167.6 cm; Wt 67.3 kg
[~2024-10-25 22:54] MED LIST changes: +ACET-1515 PO; +ASPI81TA26 PO; +HYDR12.510 PO; -HYDR12CA PO; +SERO50TA PO; -SUCR1ORA2 PO; +SUCR1ORA20 PO; +TAMS-18 PO
[2024-10-26 00:59] LABS: BASO # 0.1 10^3/uL (0.0-0.2); BASO % 0.6 % (0.0-1.0); EOS # 0.2 10^3/uL (0.0-0.5); EOS % 1.6 % (0.0-3.0); LYMPH # 1.3 10^3/uL (1.5-5.0); LYMPH % 12.4 % (24.0-44.0); MONO # 0.9 10^3/uL (0.0-0.8); MONO % 8.3 % (2.0-8.0); NEUTROPHILS # 7.9 10^3/uL (1.5-8.5); NEUTROPHILS % 76.7 % (36.0-66.0); PLATELET COUNT, AUTOMATED 270 10^3/uL (150-450)
[2024-10-26 01:22] LABS: CALCIUM LEVEL 9.1 MG/DL (8.3-10.6); CARBON DIOXIDE LEVEL 23 MMOL/L (20-31); CHLORIDE LEVEL 100 MMOL/L (98-107); CREATININE FOR GFR 1.68 MG/DL (0.70-1.30); GLOMERULAR FILTRATION RATE 39.8 (>35); MAGNESIUM LEVEL 2.2 MG/DL (1.8-2.4); POTASSIUM SERUM 3.7 MMOL/L (3.5-5.1); SODIUM LEVEL 138 MMOL/L (136-145)
[2024-10-26] MEDS: NS (Normal Saline) 0.9% 1,000 ML IV ONE (02:03)
[2024-10-26 03:28] LABS: ALT/SGPT 26 U/L (7.0-40); AST/SGOT 21 U/L (<34); C REACTIVE PROTEIN QUANTITATIV < 0.50 MG/DL (<1.0)
[2024-10-26] MEDS ORDERED: MOM 30 ML SUSPENSION UDC PO PRN (04:00)
[2024-10-26] MEDS: RAMELTEON 8 MG TAB PO SCH (04:26)
[2024-10-26] MEDS: LR 1,000 ML IV SCH (04:27)
[2024-10-26 06:53] LABS: PLATELET COUNT, AUTOMATED 250 10^3/uL (150-450)
[2024-10-26 07:13] LABS: CALCIUM LEVEL 8.7 MG/DL (8.3-10.6); CARBON DIOXIDE LEVEL 25.0 MMOL/L (20-31); CHLORIDE LEVEL 101.0 MMOL/L (98-107); CREATININE FOR GFR 1.49 MG/DL (0.70-1.30); GLOMERULAR FILTRATION RATE 46.0 (>35); POTASSIUM SERUM 3.8 MMOL/L (3.5-5.1); SODIUM LEVEL 138.0 MMOL/L (136-145)
[2024-10-26] MEDS: NS (Normal Saline) 0.9% 1,000 ML IV SCH (08:05)
[2024-10-26] MEDS: PANTOPRAZOLE 40MG VIAL IV SCH (08:05)
[2024-10-26] MEDS: DOCUSATE SODIUM 100 MG CAPSULE PO SCH (08:05)
[2024-10-26] MEDS: HEPARIN SOD 5000 UNITS/ML 1 ML VIAL/SYRINGE SC SCH (08:05)
[2024-10-26] MEDS: ACETAMINOPHEN 325 MG TAB PO PRN (08:05)
[2024-10-26] MEDS: NYSTATIN 100,000 UNITS/GM TOPICAL PWD 15 GM TOP SCH (08:06)
[2024-10-26] MEDS ORDERED: TAMSULOSIN 0.4 MG CAP PO SCH (09:00)
[2024-10-26] MEDS ORDERED: TAMS1CAP17 PO (11:15)
[2024-10-26] MEDS ORDERED: QUET50TA4 PO (11:15)
[2024-10-26] MEDS ORDERED: HOME MED LIST COMPLETE! XX SCH (12:05)
[2024-10-26] MEDS: QUEtiapine FUMARATE 50MG TAB PO SCH (13:28)
[2024-10-26] MEDS: TAMSULOSIN 0.4 MG CAP PO SCH (13:29)
[2024-10-26] MEDS: ASPIRIN 81 MG ENTERIC TABLET PO SCH (13:29)
[2024-10-26 14:00] VITALS: BP 113/66; TEMP 97.3
[2024-10-26] MEDS: DORZOLAMIDE/TIMOLOL 10 ML OPHTHALMIC SOLN OU SCH (20:14)
[2024-10-26] MEDS: LATANOPROST 0.005% OPHTH SOLN 2.5 ML OU SCH (20:14)
[2024-10-26 21:08] VITALS: BP 124/94; TEMP 97.5; O2SAT 97
[2024-10-27] VITALS (7 sets, daily range): BP systolic 112–162; BP diastolic 60–107; TEMP 97–98; O2SAT 95–97
[2024-10-27 10:17] LABS: PLATELET COUNT, AUTOMATED 210 10^3/uL (150-450)
[2024-10-27 10:45] LABS: CALCIUM LEVEL 8.5 MG/DL (8.3-10.6); CARBON DIOXIDE LEVEL 23.0 MMOL/L (20-31); CHLORIDE LEVEL 107.0 MMOL/L (98-107); CREATININE FOR GFR 1.26 MG/DL (0.70-1.30); GLOMERULAR FILTRATION RATE 56.2 (>35); MAGNESIUM LEVEL 1.9 MG/DL (1.8-2.4); POTASSIUM SERUM 4.3 MMOL/L (3.5-5.1); SODIUM LEVEL 143.0 MMOL/L (136-145)
[2024-10-27] MEDS: METOPROLOL SUCC. 25 MG *XL* TAB PO ONE (11:03)
[2024-10-27] MEDS ORDERED: AMLO1TAB24 PO (11:15)
[2024-10-27] MEDS ORDERED: METO1TAB32 PO (11:17)
[2024-10-27] MEDS: amLODIPine 5 MG TAB PO ONE (11:42)
[2024-10-27] MEDS ORDERED: AMLO2.5T3 PO (12:45)
== END 2024-10-27 15:55 | disposition home health service (06) | DRG 684 ==
LOC: M ED 22:54 → M ED INP 10-26 04:00 → M MS5PR 10-26 13:37
PROVIDERS: ADMIT Student in an Organized Health Care Education/Training Program; ATTEND Internal Medicine
DX: N17.9 Acute kidney failure, unspecified (principal); F02.80 Dementia in other diseases classified elsewhere, unspecified severity, without behavioral disturbance, psychotic disturbance, mood disturbance, and anxiety; G31.83 Neurocognitive disorder with Lewy bodies; G20.A1 Parkinson's disease without dyskinesia, without mention of fluctuations; I10 Essential (primary) hypertension; H40.9 Unspecified glaucoma; G89.29 Other chronic pain; Z90.49 Acquired absence of other specified parts of digestive tract; I95.9 Hypotension, unspecified; R33.9 Retention of urine, unspecified; E86.0 Dehydration; N40.1 Benign prostatic hyperplasia with lower urinary tract symptoms; B35.4 Tinea corporis; Z66 Do not resuscitate; Z79.82 Long term (current) use of aspirin; Z79.899 Other long term (current) drug therapy

== ENCOUNTER 2024-10-29 00:07 | Emergency (ER) | payer MEDICARE, OTHER ==
[~2024-10-29] VITALS: Ht 175.3 cm; Wt 69.8 kg
[~2024-10-29 00:07] MED LIST changes: +AMLO1TAB24 PO; +QUET50TA4 PO; +TAMS1CAP17 PO
[2024-10-29] MEDS: ACETAMINOPHEN 500 MG TAB PO ONE (01:09)
[2024-10-29 07:11] VITALS: BP 111/69; O2SAT 100
[2024-10-29 07:45] VITALS: TEMP 97.4
== END 2024-10-29 10:03 | disposition home or self-care (01) ==
LOC: EDBD 00:07 → M ED 00:07
DX: M54.50 Low back pain, unspecified (principal); M25.531 Pain in right wrist; G20.A1 Parkinson's disease without dyskinesia, without mention of fluctuations; F03.90 Unspecified dementia, unspecified severity, without behavioral disturbance, psychotic disturbance, mood disturbance, and anxiety; Z79.1 Long term (current) use of non-steroidal anti-inflammatories (NSAID); Z79.899 Other long term (current) drug therapy
CPT/HCPCS: 72110; 73090; 73110; 73130; 96372; 99284; J2060

== ENCOUNTER 2025-02-05 20:04 | Emergency (ER) | payer MEDICARE, OTHER ==
[~2025-02-05] VITALS: Ht 172.7 cm; Wt 77.0 kg
[2025-02-05] MEDS ORDERED: CARB25TA9 (20:15)
[2025-02-05] MEDS ORDERED: PANT40TA29 (20:15)
[2025-02-05 20:36] LABS: BASO # 0.1 10^3/uL (0.0-0.2); BASO % 0.8 % (0.0-1.0); EOS # 0.2 10^3/uL (0.0-0.5); EOS % 1.8 % (0.0-3.0); LYMPH # 1.4 10^3/uL (1.5-5.0); LYMPH % 16.9 % (24.0-44.0); MONO # 0.8 10^3/uL (0.0-0.8); MONO % 9.3 % (2.0-8.0); NEUTROPHILS # 5.8 10^3/uL (1.5-8.5); NEUTROPHILS % 70.8 % (36.0-66.0); PLATELET COUNT, AUTOMATED 223 10^3/uL (150-450)
[2025-02-05] MEDS: NS 500 ML IV ONE (20:41)
[2025-02-05 20:53] LABS: VENOUS BASE EXCESS 0.1 (-2.0-2.0); VENOUS HCO3 25.1 MMOL/L (23.0-27.0); VENOUS O2 SATURATION 92.9 % (60.0-80.0); VENOUS PARTIAL PRESSURE CO2 42.3 mmHg (38.0-50.0); VENOUS PARTIAL PRESSURE O2 67.4 mmHg (30.0-50.0); VENOUS PH 7.391 UNITS (7.330-7.430); VENOUS STANDARD HCO3 24.4 MMOL/L; VENOUS TOTAL CO2 26.4 MMOL/L (24.0-28.0)
[2025-02-05] MEDS ORDERED: ISOVUE-370 76% 100 ML VIAL As Ordered ONE (20:58)
[2025-02-05] MEDS: MIDAZOLAM INJ 2 MG/2 ML VIAL IV ONE (21:21)
[2025-02-05 21:29] LABS: OSMOLALITY SERUM 303 MOSM/KG (280-301)
[2025-02-05 21:31] LABS: CK-MB VALUE MASS 1.8 NG/ML (<3.6); ETHYL ALCOHOL (ETHANOL) 0.007 % (0.000-0.010)
[2025-02-05 21:33] LABS: ALT/SGPT 11 U/L (7.0-40); AST/SGOT 18 U/L (<34); CALCIUM LEVEL 9.1 MG/DL (8.3-10.6); CARBON DIOXIDE LEVEL 28 MMOL/L (20-31); CHLORIDE LEVEL 107 MMOL/L (98-107); CPK CREATINE PHOSPHOKINASE 57 U/L (46-171); CREATININE FOR GFR 1.14 MG/DL (0.70-1.30); GLOMERULAR FILTRATION RATE 63.4 (>35); MB/CK RELATIVE INDEX 3.15 (< OR =4); POTASSIUM SERUM 3.4 MMOL/L (3.5-5.1); SALICYLATE LEVEL < 3.0 MG/DL (<30); SODIUM LEVEL 144 MMOL/L (136-145)
[2025-02-05 22:38] LABS: CK-MB VALUE MASS 1.4 NG/ML (<3.6)
[2025-02-05 22:39] LABS: CPK CREATINE PHOSPHOKINASE 62.0 U/L (46-171); MB/CK RELATIVE INDEX 2.25 (< OR =4)
[2025-02-05 23:01] LABS: KETONE, URINE AUTO RFX NEGATIVE (NEGATIVE); LEUKOCYTE ESTERASE UR AUTO RFX NEGATIVE (NEGATIVE); MUCUS, URINE RFX SMALL (NEGATIVE); NITRITE, URINE AUTO RFX NEGATIVE (NEGATIVE); RBC, URINE AUTO RFX 0 /HPF (0-3); SQUAM EPITHELIAL CELL UR AURFX 0 /HPF (0-6); WBC, URINE AUTO RFX 1 /HPF (0-3)
[2025-02-05 23:23] LABS: AMPHETAMINES LEVEL URINE NEGATIVE (NEGATIVE); BARBITURATES URINE NEGATIVE (NEGATIVE); CANNABINOIDS URINE NEGATIVE (NEGATIVE); COCAINE METABOLITE URINE NEGATIVE (NEGATIVE); METHADONE URINE NEGATIVE (NEGATIVE); OPIATES URINE NEGATIVE (NEGATIVE); PHENCYCLIDINE URINE NEGATIVE (NEGATIVE)
[2025-02-05 23:49] LABS: BENZODIAZEPINES URINE POSITIVE (NEGATIVE)
[2025-02-06 01:15] VITALS: BP 146/78; TEMP 98.2; O2SAT 93
== END 2025-02-06 01:40 | disposition home or self-care (01) ==
LOC: M ED 20:04
DX: R41.82 Altered mental status, unspecified (principal); E78.5 Hyperlipidemia, unspecified; C61 Malignant neoplasm of prostate; E55.9 Vitamin D deficiency, unspecified; I10 Essential (primary) hypertension; Z79.1 Long term (current) use of non-steroidal anti-inflammatories (NSAID); Z79.899 Other long term (current) drug therapy
CPT/HCPCS: 51701; 70450; 70496; 70498; 71045; 80047; 80048; 80076; 80143; 80307; 81001; 82077; 82140; 82550; 82553; 82803; 83605; 83930; 84145; 84443; 84484; 85025; 87040; 87486; 87581; 87633; 87798; 93005; 93041; 94760; 96361; 96374; 99285; J2250; Q9967

== ENCOUNTER → 2025-02-21 | Outpatient (REF) | payer MEDICARE, OTHER ==
[~2025-02-21] MED LIST changes: +BUSP10TA PO; +CARB25TA9 PO; +QUET1TAB17 PO
== END ==
LOC: M SFHCPLAZ 16:57
PROVIDERS: ATTEND Family Medicine
DX: Z53.9 Procedure and treatment not carried out, unspecified reason (principal)

== ENCOUNTER 2025-02-22 20:12 | Emergency (ER) | payer MEDICARE, OTHER ==
[~2025-02-22] VITALS: Ht 162.6 cm; Wt 72.7 kg
[~2025-02-22 20:12] MED LIST changes: -BUSP10TA PO; -QUET1TAB17 PO
[2025-02-22 20:21] VITALS: TEMP 97.8
[2025-02-22 21:24] LABS: VENOUS BASE EXCESS -1.6 (-2.0-2.0); VENOUS HCO3 23.1 MMOL/L (23.0-27.0); VENOUS O2 SATURATION 89.5 % (60.0-80.0); VENOUS PARTIAL PRESSURE CO2 39.0 mmHg (38.0-50.0); VENOUS PARTIAL PRESSURE O2 57.8 mmHg (30.0-50.0); VENOUS PH 7.390 UNITS (7.330-7.430); VENOUS STANDARD HCO3 22.9 MMOL/L; VENOUS TOTAL CO2 24.3 MMOL/L (24.0-28.0)
[2025-02-22 21:32] LABS: BASO # 0.1 10^3/uL (0.0-0.2); BASO % 0.9 % (0.0-1.0); EOS # 0.2 10^3/uL (0.0-0.5); EOS % 1.9 % (0.0-3.0); LYMPH # 1.2 10^3/uL (1.5-5.0); LYMPH % 15.4 % (24.0-44.0); MONO # 0.7 10^3/uL (0.0-0.8); MONO % 8.9 % (2.0-8.0); NEUTROPHILS # 5.7 10^3/uL (1.5-8.5); NEUTROPHILS % 72.6 % (36.0-66.0); PLATELET COUNT, AUTOMATED 225 10^3/uL (150-450)
[2025-02-22 21:55] LABS: CK-MB VALUE MASS 2.1 NG/ML (<3.6); ETHYL ALCOHOL (ETHANOL) < 0.003 % (0.000-0.010)
[2025-02-22 21:56] LABS: CPK CREATINE PHOSPHOKINASE 58 U/L (46-171); MB/CK RELATIVE INDEX 3.62 (< OR =4)
[2025-02-22 21:57] LABS: ALT/SGPT 14 U/L (7.0-40); AST/SGOT 15 U/L (<34); CALCIUM LEVEL 9.0 MG/DL (8.3-10.6); CARBON DIOXIDE LEVEL 26 MMOL/L (20-31); CHLORIDE LEVEL 110 MMOL/L (98-107); CREATININE FOR GFR 1.25 MG/DL (0.70-1.30); GLOMERULAR FILTRATION RATE 56.8 (>35); POTASSIUM SERUM 4.5 MMOL/L (3.5-5.1); SODIUM LEVEL 145 MMOL/L (136-145)
[2025-02-22] MEDS ORDERED: ISOVUE-370 76% 100 ML VIAL As Ordered ONE (22:06)
[2025-02-22] MEDS: MIDAZOLAM INJ 2 MG/2 ML VIAL IV STA (22:53)
[2025-02-22 23:04] VITALS: BP 134/80
[2025-02-22 23:35] LABS: KETONE, URINE AUTO RFX NEGATIVE (NEGATIVE); LEUKOCYTE ESTERASE UR AUTO RFX NEGATIVE (NEGATIVE); MUCUS, URINE RFX SMALL (NEGATIVE); NITRITE, URINE AUTO RFX NEGATIVE (NEGATIVE); RBC, URINE AUTO RFX 1 /HPF (0-3); SQUAM EPITHELIAL CELL UR AURFX 0 /HPF (0-6); WBC, URINE AUTO RFX 4 /HPF (0-3)
[2025-02-22 23:52] LABS: CK-MB VALUE MASS 2.7 NG/ML (<3.6)
[2025-02-22 23:55] LABS: CPK CREATINE PHOSPHOKINASE 72.0 U/L (46-171); MB/CK RELATIVE INDEX 3.75 (< OR =4)
[2025-02-23] MEDS ORDERED: BUSP10TA PO (00:56)
[2025-02-23] MEDS ORDERED: QUET1TAB17 PO (00:56)
[2025-02-23] MEDS ORDERED: HOME MED LIST COMPLETE! XX SCH (01:00)
[2025-02-23 01:27] VITALS: O2SAT 100
== END 2025-02-23 01:44 | disposition home or self-care (01) ==
LOC: M ED 20:12
DX: R41.0 Disorientation, unspecified (principal); I95.89 Other hypotension; I10 Essential (primary) hypertension; N40.0 Benign prostatic hyperplasia without lower urinary tract symptoms; K21.9 Gastro-esophageal reflux disease without esophagitis; Z79.1 Long term (current) use of non-steroidal anti-inflammatories (NSAID); Z79.899 Other long term (current) drug therapy
CPT/HCPCS: 70450; 70496; 70498; 71045; 80047; 80048; 80076; 81001; 82077; 82140; 82550; 82553; 82803; 83605; 83880; 84145; 84443; 84484; 85025; 87040; 87486; 87581; 87633; 87798; 93005; 93041; 94760; 96374; 99285; J2250; Q9967

== ENCOUNTER → 2025-02-22 | Outpatient (REF) | payer MEDICARE, OTHER ==
[2025-02-22 15:44] LABS: CALCIUM LEVEL 9.3 MG/DL (8.3-10.6); CARBON DIOXIDE LEVEL 28.0 MMOL/L (20-31); CHLORIDE LEVEL 106.0 MMOL/L (98-107); CREATININE FOR GFR 1.16 MG/DL (0.70-1.30); GLOMERULAR FILTRATION RATE 62.1 (>35); POTASSIUM SERUM 4.2 MMOL/L (3.5-5.1); SODIUM LEVEL 145.0 MMOL/L (136-145)
== END ==
LOC: M SFHCADAM 08:16
PROVIDERS: ATTEND Nurse Practitioner Adult Health
DX: I87.2 Venous insufficiency (chronic) (peripheral) (principal)

== ENCOUNTER 2025-03-04 07:21 | Inpatient (IN) | payer MEDICARE, OTHER ==
[~2025-03-04] VITALS: Ht 177.8 cm; Wt 71.8 kg
[~2025-03-04 07:21] MED LIST changes: +BUSP10TA PO; +QUET1TAB17 PO
[2025-03-04 09:21] LABS: BASO # 0.1 10^3/uL (0.0-0.2); BASO % 0.6 % (0.0-1.0); EOS # 0.2 10^3/uL (0.0-0.5); EOS % 2.0 % (0.0-3.0); LYMPH # 1.1 10^3/uL (1.5-5.0); LYMPH % 14.1 % (24.0-44.0); MONO # 0.6 10^3/uL (0.0-0.8); MONO % 7.8 % (2.0-8.0); NEUTROPHILS # 6.0 10^3/uL (1.5-8.5); NEUTROPHILS % 75.2 % (36.0-66.0); PLATELET COUNT, AUTOMATED 226 10^3/uL (150-450)
[2025-03-04 09:37] LABS: CALCIUM LEVEL 8.5 MG/DL (8.3-10.6); CARBON DIOXIDE LEVEL 23.0 MMOL/L (20-31); CHLORIDE LEVEL 110.0 MMOL/L (98-107); CREATININE FOR GFR 1.07 MG/DL (0.70-1.30); GLOMERULAR FILTRATION RATE 68.4 (>35); POTASSIUM SERUM 3.9 MMOL/L (3.5-5.1); SODIUM LEVEL 146.0 MMOL/L (136-145)
[2025-03-04 09:49] LABS: INR 0.95
[2025-03-04] MEDS ORDERED: MAALOX 30 ML SUSP *UDC PO PRN (11:35)
[2025-03-04] MEDS ORDERED: MOM 30 ML SUSPENSION UDC PO PRN (11:35)
[2025-03-04] MEDS: ONDANSETRON 4MG/2ML VIAL IV ONE (11:42)
[2025-03-04] MEDS ORDERED: ACET-683 PO (14:10)
[2025-03-04] MEDS ORDERED: XALA0.007 OU (14:10)
[2025-03-04] MEDS ORDERED: FLUT15.820 (14:10)
[2025-03-04] MEDS ORDERED: AMLO25TA PO (14:10)
[2025-03-04] MEDS ORDERED: HOME MED LIST COMPLETE! XX SCH (14:15)
[2025-03-04] MEDS: D5W/0.9% SODIUM CHLORIDE 1,000 ML IV SCH (16:30)
[2025-03-04] MEDS: ACETAMINOPHEN 325 MG TAB PO PRN (17:16)
[2025-03-04 21:00] VITALS: BP 152/89; TEMP 100.9; O2SAT 95
[2025-03-04] MEDS: DORZOLAMIDE/TIMOLOL 10 ML OPHTHALMIC SOLN OU SCH (21:00)
[2025-03-04] MEDS: LATANOPROST 0.005% OPHTH SOLN 2.5 ML OU SCH (21:00)
[2025-03-04] MEDS: HEPARIN SOD 5000 UNITS/ML 1 ML VIAL/SYRINGE SC SCH (21:15)
[2025-03-04] MEDS: QUEtiapine FUMARATE 50MG TAB PO SCH (21:15)
[2025-03-04] MEDS: MORPHINE 4 MG/ML 1 ML VIAL IV PRN (21:16)
[2025-03-05] VITALS (14 sets, daily range): BP systolic 125–148; BP diastolic 70–88; TEMP 98.2–100.7; O2SAT 86–96
[2025-03-05 07:46] LABS: CALCIUM LEVEL 8.6 MG/DL (8.3-10.6); CARBON DIOXIDE LEVEL 24.0 MMOL/L (20-31); CHLORIDE LEVEL 109.0 MMOL/L (98-107); CREATININE FOR GFR 1.23 MG/DL (0.70-1.30); GLOMERULAR FILTRATION RATE 57.9 (>35); MAGNESIUM LEVEL 1.8 MG/DL (1.8-2.4); POTASSIUM SERUM 3.9 MMOL/L (3.5-5.1); SODIUM LEVEL 144.0 MMOL/L (136-145)
[2025-03-05] MEDS ORDERED: DEXTROSE 50% 50 ML SYRINGE IV PRN (07:55)
[2025-03-05] MEDS ORDERED: GLUCOSE 4 GM CHEW PO PRN (07:55)
[2025-03-05] MEDS ORDERED: GLUCAGON INJ 1 MG VIAL SC PRN (07:55)
[2025-03-05] MEDS: TAMSULOSIN 0.4 MG CAP PO SCH (08:43)
[2025-03-05] MEDS: NS (Normal Saline) 0.9% 1,000 ML IV SCH (09:01)
[2025-03-05] MEDS: METOPROLOL SUCC. 25 MG *XL* TAB PO SCH (09:04)
[2025-03-05] MEDS: cefTRIAXone SOD 1 GM in DEXTROSE 5% (D5W) ADV/MINI-BAG 50 ML IV SCH (10:30)
[2025-03-05] MEDS ORDERED: MIDAZOLAM INJ 2 MG/2 ML VIAL IV PRN (11:50)
[2025-03-05] MEDS ORDERED: KETAMINE HCL 200 MG/20 ML VIAL As Ordered ONE (12:52)
[2025-03-05] MEDS ORDERED: MIDAZOLAM INJ 2 MG/2 ML VIAL As Ordered ONE (12:52)
[2025-03-05] MEDS: BUPivacaine LIPOSOME/PF 133 MG/10 ML VIAL PN ONE (13:02)
[2025-03-05] MEDS: LIDOCAINE 1% SDV 5 ML VIAL PN ONE (13:02)
[2025-03-05] MEDS: TRANEXAMIC ACID 100 MG/ML 10ML VIAL As Ordered ONE (13:55)
[2025-03-05] MEDS: VANCOMYCIN 1000MG/20ML VIAL As Ordered ONE (14:40)
[2025-03-05] MEDS ORDERED: HYDROMORPHONE HCL 0.5 MG/0.5 ML SYRINGE IV PRN (15:25)
[2025-03-05] MEDS ORDERED: ceFAZolin SODIUM 2 GM in DEXTROSE 5% (D5W) ADV/MINI-BAG 50 ML IV SCH (15:25)
[2025-03-05] MEDS ORDERED: LR 1,000 ML IV SCH (15:25)
[2025-03-05] MEDS ORDERED: ONDANSETRON 4MG/2ML VIAL IV PRN (15:25)
[2025-03-06] VITALS (7 sets, daily range): BP systolic 118–142; BP diastolic 56–91; TEMP 98–100.4; O2SAT 65–98
[2025-03-06 07:09] LABS: BASO # 0.1 10^3/uL (0.0-0.2); BASO % 0.3 % (0.0-1.0); EOS # 0.5 10^3/uL (0.0-0.5); EOS % 3.2 % (0.0-3.0); LYMPH # 0.9 10^3/uL (1.5-5.0); LYMPH % 6.0 % (24.0-44.0); MONO # 1.3 10^3/uL (0.0-0.8); MONO % 8.3 % (2.0-8.0); NEUTROPHILS # 12.3 10^3/uL (1.5-8.5); NEUTROPHILS % 81.9 % (36.0-66.0); PLATELET COUNT, AUTOMATED 175 10^3/uL (150-450)
[2025-03-06 07:38] LABS: CALCIUM LEVEL 8.5 MG/DL (8.3-10.6); CARBON DIOXIDE LEVEL 24.0 MMOL/L (20-31); CHLORIDE LEVEL 109.0 MMOL/L (98-107); CREATININE FOR GFR 1.28 MG/DL (0.70-1.30); GLOMERULAR FILTRATION RATE 55.2 (>35); MAGNESIUM LEVEL 1.8 MG/DL (1.8-2.4); POTASSIUM SERUM 4.1 MMOL/L (3.5-5.1); SODIUM LEVEL 144.0 MMOL/L (136-145)
[2025-03-06] MEDS: NS (Normal Saline) 0.9% 1,000 ML IV SCH (09:47)
[2025-03-06] MEDS: ASCORBIC ACID 500 MG TAB PO SCH (09:48)
[2025-03-06] MEDS: SENNA 8.6 MG TAB PO SCH (09:48)
[2025-03-06] MEDS: FERROUS SULFATE 325 MG TAB PO SCH (09:48)
[2025-03-06 13:34] LABS: KETONE, URINE AUTO RFX TRACE mg/dL (NEGATIVE); MUCUS, URINE RFX SMALL (NEGATIVE); NITRITE, URINE AUTO RFX NEGATIVE (NEGATIVE); RBC, URINE AUTO RFX 26 /HPF (0-3); SQUAM EPITHELIAL CELL UR AURFX 0 /HPF (0-6)
[2025-03-06 13:35] LABS: LEUKOCYTE ESTERASE UR AUTO RFX TRACE (NEGATIVE); WBC, URINE AUTO RFX 15 /HPF (0-3)
[2025-03-07 03:16] VITALS: BP 127/74; TEMP 97.7; O2SAT 97
[2025-03-07 07:44] LABS: BASO # 0.1 10^3/uL (0.0-0.2); BASO % 0.4 % (0.0-1.0); EOS # 0.3 10^3/uL (0.0-0.5); EOS % 1.9 % (0.0-3.0); LYMPH # 0.9 10^3/uL (1.5-5.0); LYMPH % 6.6 % (24.0-44.0); MONO # 1.2 10^3/uL (0.0-0.8); MONO % 9.0 % (2.0-8.0); NEUTROPHILS # 11.0 10^3/uL (1.5-8.5); NEUTROPHILS % 81.6 % (36.0-66.0); PLATELET COUNT, AUTOMATED 180 10^3/uL (150-450)
[2025-03-07 07:56] LABS: CALCIUM LEVEL 8.2 MG/DL (8.3-10.6); CARBON DIOXIDE LEVEL 24.0 MMOL/L (20-31); CHLORIDE LEVEL 111.0 MMOL/L (98-107); CREATININE FOR GFR 1.26 MG/DL (0.70-1.30); GLOMERULAR FILTRATION RATE 56.2 (>35); MAGNESIUM LEVEL 1.8 MG/DL (1.8-2.4); POTASSIUM SERUM 3.7 MMOL/L (3.5-5.1); SODIUM LEVEL 144.0 MMOL/L (136-145)
[2025-03-07 11:52] VITALS: BP 132/63; TEMP 98.2; O2SAT 97
[2025-03-07 20:56] VITALS: BP 130/78; TEMP 99.6; O2SAT 94
[2025-03-07 21:34] VITALS: TEMP 98.7
[2025-03-08 03:35] VITALS: BP 141/83; TEMP 99.1; O2SAT 96
[2025-03-08 07:02] LABS: CALCIUM LEVEL 7.8 MG/DL (8.3-10.6); CARBON DIOXIDE LEVEL 21.0 MMOL/L (20-31); CHLORIDE LEVEL 114.0 MMOL/L (98-107); CREATININE FOR GFR 1.07 MG/DL (0.70-1.30); GLOMERULAR FILTRATION RATE 68.4 (>35); MAGNESIUM LEVEL 1.9 MG/DL (1.8-2.4); POTASSIUM SERUM 3.7 MMOL/L (3.5-5.1); SODIUM LEVEL 147.0 MMOL/L (136-145)
[2025-03-08] MEDS: CEFPODOXIME PROXETIL 200 MG TABLET PO SCH (08:45)
[2025-03-08 12:16] VITALS: BP 131/72; TEMP 99.1; O2SAT 94
[2025-03-08 19:38] VITALS: BP 115/67; TEMP 98.8; O2SAT 95
[2025-03-09 03:12] VITALS: BP 129/72; TEMP 98.6; O2SAT 96
[2025-03-09 07:45] LABS: CALCIUM LEVEL 7.8 MG/DL (8.3-10.6); CARBON DIOXIDE LEVEL 24.0 MMOL/L (20-31); CHLORIDE LEVEL 111.0 MMOL/L (98-107); CREATININE FOR GFR 1.02 MG/DL (0.70-1.30); GLOMERULAR FILTRATION RATE 72.5 (>35); MAGNESIUM LEVEL 2.0 MG/DL (1.8-2.4); POTASSIUM SERUM 3.7 MMOL/L (3.5-5.1); SODIUM LEVEL 147.0 MMOL/L (136-145)
[2025-03-09 09:26] VITALS: BP 138/82; TEMP 98.5; O2SAT 93
[2025-03-09 12:00] VITALS: BP 130/68; TEMP 98.1; O2SAT 97
[2025-03-09 20:17] VITALS: BP 135/79; TEMP 98.4; O2SAT 96
[2025-03-10 03:00] VITALS: BP 150/86; TEMP 98.4; O2SAT 96
[2025-03-10 06:50] LABS: CALCIUM LEVEL 8.0 MG/DL (8.3-10.6); CARBON DIOXIDE LEVEL 23.0 MMOL/L (20-31); CHLORIDE LEVEL 110.0 MMOL/L (98-107); CREATININE FOR GFR 0.89 MG/DL (0.70-1.30); GLOMERULAR FILTRATION RATE 84.5 (>35); MAGNESIUM LEVEL 2.0 MG/DL (1.8-2.4); POTASSIUM SERUM 3.8 MMOL/L (3.5-5.1); SODIUM LEVEL 144.0 MMOL/L (136-145)
[2025-03-11 04:58] VITALS: BP 135/70; TEMP 98.7; O2SAT 96
[2025-03-11 07:04] LABS: CALCIUM LEVEL 7.9 MG/DL (8.3-10.6); CARBON DIOXIDE LEVEL 26.0 MMOL/L (20-31); CHLORIDE LEVEL 110.0 MMOL/L (98-107); CREATININE FOR GFR 1.02 MG/DL (0.70-1.30); GLOMERULAR FILTRATION RATE 72.5 (>35); MAGNESIUM LEVEL 2.1 MG/DL (1.8-2.4); POTASSIUM SERUM 3.9 MMOL/L (3.5-5.1); SODIUM LEVEL 145.0 MMOL/L (136-145)
[2025-03-11] MEDS: BISACODYL 10 MG SUPP PR ONE (13:06)
[2025-03-12 04:11] VITALS: BP 122/65; TEMP 98.3; O2SAT 95
[2025-03-12 12:00] VITALS: BP 128/62; TEMP 98.7; O2SAT 96
[2025-03-13 04:14] VITALS: BP 138/72; TEMP 97.7; O2SAT 100
[2025-03-13] MEDS ORDERED: PILL CUTTER 1 EACH XX PRN (17:05)
[2025-03-14 04:00] VITALS: BP 148/78; TEMP 98.3; O2SAT 97
[2025-03-15 04:00] VITALS: BP 138/75; TEMP 97.2; O2SAT 96
[2025-03-15] MEDS ORDERED: ASCO50TA PO (06:58)
[2025-03-15] MEDS ORDERED: SENN18TA PO (06:58)
[2025-03-15] MEDS ORDERED: FERR1TAB8 PO (06:58)
[2025-03-15] MEDS ORDERED: OXYC-517 PO (06:58)
[2025-03-15] MEDS ORDERED: ASPI81CH33 PO (07:29)
[2025-03-15 08:53] VITALS: BP 122/87
== END 2025-03-15 09:15 | DRG 522 ==
LOC: M ED 07:21 → M ED INP 12:51 → M MSPAV 20:37
PROVIDERS: ADMIT Student in an Organized Health Care Education/Training Program; ATTEND Internal Medicine
PROC: 0SRR0JZ Replacement of Right Hip Joint, Femoral Surface with Synthetic Substitute, Open Approach (ICD-10-PCS; principal; 2025-03-05 08:00)
DX: S72.011A Unspecified intracapsular fracture of right femur, initial encounter for closed fracture (principal); G31.83 Neurocognitive disorder with Lewy bodies; F02.80 Dementia in other diseases classified elsewhere, unspecified severity, without behavioral disturbance, psychotic disturbance, mood disturbance, and anxiety; I10 Essential (primary) hypertension; H40.9 Unspecified glaucoma; G89.29 Other chronic pain; N40.0 Benign prostatic hyperplasia without lower urinary tract symptoms; R50.9 Fever, unspecified; G20.A1 Parkinson's disease without dyskinesia, without mention of fluctuations; W06.XXXA Fall from bed, initial encounter; Y92.013 Bedroom of single-family (private) house as the place of occurrence of the external cause; Y93.89 Activity, other specified; Y99.8 Other external cause status; Z79.899 Other long term (current) drug therapy; Z90.49 Acquired absence of other specified parts of digestive tract